=== PATIENT | male | born 1965 | race Asian ===

== ENCOUNTER 2023-07-19 13:55 | Emergency (ER) | payer BC ==
[~2023-07-19] VITALS: Ht 190.5 cm; Wt 104.3 kg
== END 2023-07-19 14:30 | disposition home or self-care (01) ==
LOC: ED 13:55
PROC: 0HQGXZZ Repair Left Hand Skin, External Approach (ICD-10-PCS; principal; 2023-07-19)
DX: S61.412A Laceration without foreign body of left hand, initial encounter (principal); S60.512A Abrasion of left hand, initial encounter; W45.8XXA Other foreign body or object entering through skin, initial encounter
CPT/HCPCS: 90472; 90715; 99283